=== PATIENT | male | born 1975 | race Two or more races ===

== ENCOUNTER 2022-12-19 04:42 | Emergency (ER) | payer BC ==
[~2022-12-19] VITALS: Ht 165.1 cm; Wt 68.0 kg
== END 2022-12-19 06:04 | disposition home or self-care (01) ==
LOC: ER 04:42
DX: S01.411A Laceration without foreign body of right cheek and temporomandibular area, initial encounter (principal); W18.30XA Fall on same level, unspecified, initial encounter; Y93.9 Activity, unspecified; Y92.59 Other trade areas as the place of occurrence of the external cause; Y99.9 Unspecified external cause status